=== PATIENT | male | born 1990 | race Caucasian/White ===

== ENCOUNTER 2020-01-24 08:38 | Emergency (ER) | payer OTHER ==
[~2020-01-24] VITALS: Ht 175.3 cm; Wt 99.3 kg
[2020-01-24 08:39] VITALS: BP 140/75
[2020-01-24] MEDS ORDERED: ERYTHROMYCIN OPHTH OINT OS ONE (09:00)
[2020-01-24] MEDS ORDERED: TETRACAINE 0.5% OPHTH SOLN 4ML OS ONE (09:00)
[2020-01-24] MEDS ORDERED: FLUORESCEIN OPHTH 1 MG STRIP OS ONE (09:00)
[2020-01-24] MEDS ORDERED: ERYT1OIN26 OS (09:09)
== END 2020-01-24 09:15 | disposition home or self-care (01) ==
LOC: EDBD 08:38 → M ED 08:38
DX: S05.02XA Injury of conjunctiva and corneal abrasion without foreign body, left eye, initial encounter (principal); W50.4XXA Accidental scratch by another person, initial encounter; Y92.019 Unspecified place in single-family (private) house as the place of occurrence of the external cause